=== PATIENT | female | born 2000 | race Caucasian/White ===

== ENCOUNTER 2023-02-11 08:22 | Outpatient (OUT) | payer OTHER, SELFPAY ==
--- NOTE | 2023-02-11 08:33 | XR_ITS ---
The [address] [address] Patient Name: WALESKA ANDERSON MRN: [id number] date: 2000 Sex: F Assigned Patient Location: [facility] Current Patient Location: [facility] Accession/Order Number: [id number] Exam Date: 02/11/2023 08:39 Report Date: 02/11/2023 09:09 At the request of: JOEY PAUL Procedure: XR shoulder LT min 2V PROCEDURE: XR shoulder LT min 2V HISTORY: Left Shoulder Pain COMPARISON: None. FINDINGS: BONES:No fracture, acute abnormality, or significant arthropathy. SOFT TISSUES:No visible soft tissue swelling. EFFUSION:None visible. OTHER: Negative. XR/XR shoulder LT min 2V IMPRESSION: 1. Normal examination. Consider MRI of left shoulder if symptoms persist. Electronically authenticated by: AFIA ZAMORA Date: 02/11/2023 09:09
== END 2023-02-11 08:23 | disposition home or self-care (01) ==
PROVIDERS: PCP Family Medicine; Visit Provider Family Medicine
DX: M25.512 Pain in left shoulder (principal)
CPT/HCPCS: 73030

== ENCOUNTER 2023-02-16 15:07 | Outpatient (RCR) | payer OTHER, SELFPAY | END 2023-02-17 16:12 | disposition home or self-care (01) | LOC: PT 15:07 | PROVIDERS: PCP Family Medicine; Visit Provider Family Medicine | DX: M25.512 Pain in left shoulder (principal); M79.602 Pain in left arm | CPT/HCPCS: 97110; 97140; 97161 ==

== ENCOUNTER 2023-07-13 10:15 | Outpatient (RCR) | payer OTHER, SELFPAY | END 2023-08-18 13:13 | disposition home or self-care (01) | LOC: PT 10:15 | PROVIDERS: PCP Family Medicine; Visit Provider Family Medicine | DX: M25.512 Pain in left shoulder (principal); G89.29 Other chronic pain | CPT/HCPCS: 97110; 97161 ==